=== PATIENT | male | born 1995 | race Caucasian/White ===

== ENCOUNTER 2020-02-21 11:57 | Inpatient (IN) | payer MEDICAID ==
[~2020-02-21] VITALS: Ht 172.7 cm; Wt 66.2 kg
[2020-02-21] VITALS (8 sets, daily range): BP systolic 108–136; BP diastolic 54–75
--- NOTE | 2020-02-21 12:00 | NUR ---
PT BIB SELF C/O NAUSEA AND VOMITING, BODYACHES SINCE 8AM. PT IS AAOX4, NOT IN RESPIRATORY DISTRESS, HOOKED TO PROVIDER RELATIONS CONSULTANT, KEPT RESTED AND COMFORTABLE, WILL CONTINUE TO MONITOR.
--- NOTE | 2020-02-21 12:25 | NUR ---
URINE SPECIMEN COLLECTED AND SENT TO LAB.
[2020-02-21] MEDS ORDERED: IV NS 0.9% 1,000 ML BAG IV ONE (12:30)
--- NOTE | 2020-02-21 12:30 | NUR ---
IV LINE ESTABLISHED BLOOD DRAWN AND SENT TO LAB.
[2020-02-21 12:34] LABS: APPEARANCE,URINE Clear (CLEAR); BILIRUBIN,URINE Negative (NEGATIVE); BLOOD, URINE Trace-intact Ery/uL (NEGATIVE); COLOR,URINE Yellow (YELLOW); KETONES,URINE >=160 (NEGATIVE); LEUKOCYTE ESTERASE ,URINE Negative (NEGATIVE); NITRITE, URINE Negative (NEGATIVE); PROTEIN,URINE Negative (NEGATIVE); UGLUCOSE 500 MG/DL mg/dL (NEGATIVE); UROBILINOGEN,URINE 0.2 EU/dL (0.2)
[2020-02-21 12:39] LABS: BASOPHILS % (AUTO) 0.2 % (0.0-2.0); HEMATOCRIT 49 % (39-51); LYMPHOCYTES # (AUTO) 0.9 /CMM (0.8-4.8); LYMPHOCYTES % (AUTO) 5.2 % (20.0-44.0); MEAN CORPUSCULAR HGB CONC 33 g/dl (31.0-36.0); MEAN CORPUSCULAR VOLUME 93 fL (80-96); MONOCYTES # (AUTO) 0.4 /CMM (0.1-1.30); MONOCYTES % (AUTO) 2.2 % (2.0-12.0); NEUTROPHILS # (AUTO) 15.7 /CMM (1.8-8.9); NEUTROPHILS % (AUTO) 92.4 % (43.0-81.0); PLATELET COUNT (AUTO) 241 /CMM (150-450); RED BLOOD CELL COUNT(AUTO) 5.25 MIL/uL (4.5-6.0); WHITE BLOOD COUNT (AUTO) 16.9 K/uL (4.3-11.0)
[2020-02-21 12:49] LABS: BACTERIA,URINE Few /HPF (None Seen); WBC,URINE 0-2 /HPF (0-3)
[2020-02-21 12:50] LABS: SQUAMOUS EPITHELIAL CELL,UR Few /HPF (None Seen)
[2020-02-21 12:55] LABS: ALBUMIN 5.4 g/dL (3.4-5.0); BILIRUBIN,DIRECT 0.2 mg/dL (0.0-0.2); BILIRUBIN,TOTAL 1.1 mg/dL (0.2-1.0); CREATININE 1.4 mg/dL (0.6-1.3); POTASSIUM 4.4 mmol/L (3.5-5.1); TOTAL PROTEIN, SERUM 8.1 g/dL (6.4-8.2)
[2020-02-21] MEDS ORDERED: ONDANSETRON HCL/PF - ER 4 MG/2 ML VIAL IV ONE (13:00)
[2020-02-21] MEDS ORDERED: ONDANSETRON HCL/PF 4 MG/2 ML VIAL ONE (13:08)
--- NOTE | 2020-02-21 13:20 | NUR ---
CALLED PHARMACY FOR INSULIN DRIP.
[2020-02-21] MEDS ORDERED: INSULIN REGULAR, HUMAN 100 UNIT in IV NS 0.9% 100 ML IV PRN ×2 (13:30)
[2020-02-21] MEDS ORDERED: INSU100V SQ (13:45)
[2020-02-21] MEDS ORDERED: SERT50TA12 MT (13:45)
--- NOTE | 2020-02-21 13:54 | NUR ---
CALLED ICU NURSE NOT AVAILABLE. WILL CALL BACK AFTER 10MINS.
[2020-02-21] MEDS ORDERED: Z GUARD REMEDY 2 OZ OINT TP PRN (14:00)
[2020-02-21] MEDS ORDERED: ONDANSETRON HCL/PF 4 MG/2 ML VIAL IVP PRN (14:00)
[2020-02-21] MEDS ORDERED: ACETAMINOPHEN 325 MG TABLET PO PRN (14:00)
[2020-02-21] MEDS ORDERED: HYDROCODONE/APAP 5/325MG TABLET PO PRN (14:00)
[2020-02-21] MEDS ORDERED: MAGNESIUM HYDROXIDE 30 ML UDC PO PRN (14:00)
[2020-02-21] MEDS ORDERED: INSULIN REGULAR, HUMAN 100 UNIT in IV NS 0.9% 99 ML IV PRN ×2 (14:00)
[2020-02-21] MEDS ORDERED: MAG HYDROX/AL HYDROX/SIMETH 30 ML UDC PO PRN (14:00)
--- NOTE | 2020-02-21 14:10 | NUR ---
REPORT GIVEN TO DIVYA DOW FOR CHANDLER, [facility] ONGOING INSULIN DRIP TITRATE TO EFFECT.
--- NOTE | 2020-02-21 14:22 | NUR ---
ROOM CHANGED TO 262
--- NOTE | 2020-02-21 14:51 | NUR ---
DR POLLOCK AT BEDSIDE
--- NOTE | 2020-02-21 15:30 | NUR ---
RN INITIAL NOTES RECEIVED PT FROM ER. PT A/OX4. ON ROOM AIR. NO RESPIRATORY DISTRESS NOTED. DENIES ANY PAIN. CONNECTED TO MONITOR. IV LINE IN PLACE. IVF INFUSING. ON INSULIN DRIP. WILL MONITOR BLOOD SUGAR Q1. ORIENTED TO ROOM AND USE OF CALL LIGHT. WILL CLOSELY MONITOR
[2020-02-21] MEDS: IV 1/2NS 1000 ML 1,000 ML IV PRN ×2 (15:37→15:50)
[2020-02-21] MEDS ORDERED: DEXTROSE 50%-WATER 50 ML DISP.SYRIN IV PRN (17:00)
[2020-02-21] MEDS: BLOOD SUGAR DIAGNOSTIC 1 EACH STRIP IN SCH ×7 (17:12→23:01)
[2020-02-21 18:23] LABS: CALCIUM, SERUM 9.1 mg/dL (8.5-10.1); CREATININE 0.9 mg/dL (0.6-1.3); POTASSIUM 4.5 mmol/L (3.5-5.1)
--- NOTE | 2020-02-21 18:25 | NUR ---
RN CLOSING NOTES PT REMAINS ON INSULIN DRIP, PROTOCOL FOLLOWED. NO SIGNIFICANT CHANGE NOTED. REMAINS A/OX4. DENIES ANY PAIN. KEPT COMFORTABLE. ALL NEEDS ATTENDED AND MET. CALL LIGHT WITHIN REACH. WILL ENDORSE FOR CONTINUITY OF CARE
--- NOTE | 2020-02-21 19:30 | NUR ---
RN NOTES RECEIVED PATIENT IN BED ALERT AWAKE ORIENTED X4. BREATHING NORMAL NO SOB NOTED. ON RA SATURATING 98%. NO S/S OF DISTRESS NOTED. DENIES ANY PAIN OR DISTRESS. TELE MONITOR READING SR IN 90'S. IV SITE ANDREA FLUID AND INSULIN DRIP RUNNING WELL. CONTINUES ON BS Q1 HOURS. SAFETY MEASURES IN PLACE, BED IN LOW AND LOCKED POSITION. SIDE RAILS UPX2 CALL LIGHT WITHIN REACH. WILL CONT TO MONITOR FOR CHANDLER.
[2020-02-21] MEDS: IV D5/ 0.9% NACL 1,000 ML IV SCH (21:37)
[2020-02-22] VITALS (21 sets, daily range): BP systolic 106–141; BP diastolic 55–93
[2020-02-22] MEDS: BLOOD SUGAR DIAGNOSTIC 1 EACH STRIP IN SCH ×10 (00:34→09:20)
[2020-02-22 00:56] LABS: CALCIUM, SERUM 8.8 mg/dL (8.5-10.1)
[2020-02-22 04:31] LABS: BASOPHILS % (AUTO) 0.2 % (0.0-2.0); EOSINOPHILS % (AUTO) 0.2 % (0.0-6.0); HEMATOCRIT 42 % (39-51); HEMOGLOBIN 14.2 g/dL (13.5-17.5); LYMPHOCYTES # (AUTO) 2.7 /CMM (0.8-4.8); LYMPHOCYTES % (AUTO) 23.7 % (20.0-44.0); MEAN CORPUSCULAR HGB CONC 34 g/dl (31.0-36.0); MEAN CORPUSCULAR VOLUME 90 fL (80-96); MONOCYTES % (AUTO) 8.8 % (2.0-12.0); NEUTROPHILS # (AUTO) 7.6 /CMM (1.8-8.9); NEUTROPHILS % (AUTO) 67.1 % (43.0-81.0); PLATELET COUNT (AUTO) 193 /CMM (150-450); RED BLOOD CELL COUNT(AUTO) 4.64 MIL/uL (4.5-6.0); WHITE BLOOD COUNT (AUTO) 11.3 K/uL (4.3-11.0)
[2020-02-22 04:59] LABS: CALCIUM, SERUM 8.6 mg/dL (8.5-10.1); MAGNESIUM 1.9 mg/dL (1.8-2.4); PHOSPHORUS 2.5 mg/dL (2.5-4.9); POTASSIUM 4.1 mmol/L (3.5-5.1); TOTAL PROTEIN, SERUM 6.6 g/dL (6.4-8.2)
[2020-02-22] MEDS: IV D5/ 0.9% NACL 1,000 ML IV SCH (05:30)
--- NOTE | 2020-02-22 07:08 | NUR ---
RN NOTES PATIENT REMAINED STABLE THROUGH OUT THE SHIFT. NO /S OF ACUTE DISTRESS NOTED. CONTINUES ON INSULIN DRIP AND FLUID RUNNING WELL. PATIENT DENIES ANY PAIN OR DISCOMFORT. VITAL SIGNS REMAINED WNL. CONTINUES ON BS Q1 HOURS. SAFETY MEASURES IN PLACE, BED IN LOW AND LOCKED POSITION. SIDE RAILS UPX2 CALL LIGHT WITHIN REACH. WILL ENDORSE TO AM NURSE FOR CHANDLER.
--- NOTE | 2020-02-22 07:40 | NUR ---
RN OPENING NOTE: RECEIVED PATIENT IN BED THIS MORNING. PATIENT IS ALERT AND ORIENTED X4, RESPONDS APPROPRIATELY. PATIENT SATING WELL ON ROOM AIR. NO SIGNS OF ACUTE RESPIRATORY DISTRESS NOTED. NO SIGNS OF ACUTE DISTRESS NOTED. SR IN THE 70S ON THE BEDSIDE MONITOR. #18 RAC, FLUSHING WELL, CDI, NO SIGNS OF COMPLICATIONS NOTED. SKIN INTACT. PATIENT ON INSULIN DRIP AT 1UNIT/HR, D5NS HANGING AT 125 CC/HR. SAFETY MEASURES IMPLEMENTED, BED IN LOWEST POSITION, LOCKED, SIDE RAILS UP X2, CALL LIGHT WITHIN REACH. WILL CONTINUE TO MONITOR PATIENT FOR CHANGES.
[2020-02-22] MEDS ORDERED: IV D5/ 0.9% NACL 1,000 ML IV PRN (08:25)
--- NOTE | 2020-02-22 11:36 | NUR ---
DR POLLOCK ROUNDED ON PATIENT EARLIER THIS MORNING WITH ORDERS TO STOP THE INSULIN DRIP, IVF, START HIM ON A CCHO DIET AND TO MONITOR BLOOD GLUCOSE AND ADMINISTER INSULIN WITH THE PUMP THAT PATIENT HAS FROM HOME THAT SELF ADMINISTERS AND TO DOCUMENT THE BLOOD GLUCOSE LEVELS ALONG WITH THE AMOUNT OF INSULIN SELF ADMINISTERED.
[2020-02-22 12:19] LABS: ABG OXYGEN SATURATION 97.4 % (92.0-98.5); ABG PCO2 35.9 mmHg (35.0-45.0); ABG PO2 93.2 mmHg (75.0-100.0); AaDO2 13.5 mmHg; COHb 0.6 % (0.5-1.5); MetHb 0.2 % (0.0-1.5); O2Hb 96.6 % (94.0-97.0); SITE, ABG Left Radial; VENT MODE, BG RA
--- NOTE | 2020-02-22 12:20 | NUR ---
PATIENT'S LATEST BLOOD SUGAR AT 10:11 WAS 232, PUMP ADMINISTERED 5 UNITS OF LISPRO. BLOOD SUGAR IS CURRENTLY AT 167. Addendum: 02/22/20 at 1819 by ANH MIRZA RN 1800 BLOOD SUGAR WAS 93, NO INSULIN WAS ADMINISTERED.
[2020-02-22 18:36] LABS: CREATININE 0.9 mg/dL (0.6-1.3); POTASSIUM 3.5 mmol/L (3.5-5.1)
--- NOTE | 2020-02-22 19:31 | NUR ---
PATIENT WAS TRANSFERRED TO [facility], REPORT GIVEN TO DIVYA SALAMANCA FOR CONTINUITY OF CARE. NO SIGNS OF ACUTE DISTRESS NOTED AT TIME OF DC AND PATIENT'S VS WERE WNL.
--- NOTE | 2020-02-22 19:45 | NUR ---
MS RN OPENING NOTES RECEIVED PATIENT FROM ICU, ALERT AND ORIENTED X 4. VERBALLY RESPONSIVE AND ABLE TO FOLLOW DIRECTIONS. BREATHING REGULAR AND UNLABORED ON ROOM AIR. RIGHT AC G18 IV LINE INTACT AND PATENT, FLUSHING WELL WITH NO BLEEDING OR S/S OF INFILTRATION NOTED. DENIES SUICIDAL IDEATION OR PAIN/DISCOMFORT AT THIS TIME. BED LOW AND LOCKED ON SEMI FOWLERS POSITION. CALL LIGHT IN REACH. WILL CONTINUE TO MONITOR.
--- NOTE | 2020-02-22 22:45 | NUR ---
MS RN NOTES PATIENT DECIDED TO SIGN AND GO AGAINST MEDICAL ADVICE, RISK AND BENEFITS EXPLAINED. ON-CALL MD NOTIFIED. PER PATIENT HIS MOM WILL PICK HIM UP IN THE LOBBY. IV LINE AND ID BAND REMOVED. REMAINED ALERT AND ORIENTED X 4, ON STABLE CONDITION.
== END 2020-02-22 22:45 | disposition left against medical advice (07) | DRG 420 ==
LOC: ER 12:00 → EDBD 12:00 → ICU 13:58 → MEDSG2 02-22 19:15
PROVIDERS: ADMIT Internal Medicine; ATTEND Internal Medicine
DX: E10.10 Type 1 diabetes mellitus with ketoacidosis without coma (principal); D72.829 Elevated white blood cell count, unspecified; Z79.899 Other long term (current) drug therapy; Z79.4 Long term (current) use of insulin; Z96.41 Presence of insulin pump (external) (internal)
CPT/HCPCS: 36415; 36600; 71045-TC; 80048-TC; 80053-TC; 80061-TC; 80076-TC; 81000-TC; 82962-TC; 83690-TC; 83735-TC; 84100-TC; 85025-TC; 87081-TC; G0378; J1815; J2405; J7030; J7042

== ENCOUNTER 2021-01-17 22:39 | Emergency (ER) | payer MEDICAID, OTHER ==
[~2021-01-17] VITALS: Ht 170.2 cm; Wt 68.0 kg
[~2021-01-17 22:39] MED LIST: INSU100V SQ; SERT-438 MT
--- NOTE | 2021-01-17 23:00 | NUR ---
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 Pt aaox4 breathing evenly and unlabored. Pt skin warm, dry, and intact. Pt states that he "smoked marijuana and ate ramen noodles before he felt sick". Pt attached to monitor and pox. Rt ac20g initated and blood obtained and sent to lab. [place] and call light given and within reach
[2021-01-17] MEDS ORDERED: ONDANSETRON HCL/PF 4 MG/2 ML VIAL ONE (23:08)
[2021-01-17 23:29] LABS: BASOPHILS % (AUTO) 0.2 % (0.0-2.0); EOSINOPHILS % (AUTO) 2.8 % (0.0-6.0); HEMATOCRIT 47 % (39-51); HEMOGLOBIN 15.8 g/dL (13.5-17.5); LYMPHOCYTES # (AUTO) 1.9 /CMM (0.8-4.8); LYMPHOCYTES % (AUTO) 15.9 % (20.0-44.0); MEAN CORPUSCULAR HGB CONC 33 g/dl (31.0-36.0); MEAN CORPUSCULAR VOLUME 89 fL (80-96); MONOCYTES # (AUTO) 0.8 /CMM (0.1-1.30); MONOCYTES % (AUTO) 7.2 % (2.0-12.0); NEUTROPHILS # (AUTO) 8.7 /CMM (1.8-8.9); NEUTROPHILS % (AUTO) 73.9 % (43.0-81.0); PLATELET COUNT (AUTO) 225 /CMM (150-450); RED BLOOD CELL COUNT(AUTO) 5.34 MIL/uL (4.5-6.0); WHITE BLOOD COUNT (AUTO) 11.7 K/uL (4.3-11.0)
[2021-01-17] MEDS ORDERED: ONDANSETRON HCL/PF 4 MG/2 ML VIAL IVP ONE (23:30)
[2021-01-17] MEDS ORDERED: IV NS 0.9% 1,000 ML BAG IV ONE (23:30)
[2021-01-17 23:41] LABS: CALCIUM, SERUM 9.9 mg/dL (8.5-10.1); CREATININE 0.8 mg/dL (0.6-1.3); POTASSIUM 3.4 mmol/L (3.5-5.1)
[2021-01-17 23:47] LABS: ALBUMIN 5.1 g/dL (3.4-5.0); BILIRUBIN,DIRECT 0.1 mg/dL (0.0-0.2); BILIRUBIN,TOTAL 0.6 mg/dL (0.2-1.0); TOTAL PROTEIN, SERUM 8.4 g/dL (6.4-8.2)
[2021-01-17] MEDS ORDERED: ONDA4TAB11 PO (23:59)
--- NOTE | 2021-01-18 00:11 | NUR ---
Patient discharged to home in stable condition. Written and verbal after care instructions given. Patient verbalizes understanding of instruction. IV removed. Catheter intact and site benign. Pressure and 4x4 applied to site. No bleeding noted. Pt ambulatory with a steady gait
[2021-01-18 00:18] VITALS: BP 122/88
== END 2021-01-18 00:11 | disposition home or self-care (01) ==
LOC: ER 22:41
DX: R11.2 Nausea with vomiting, unspecified (principal); E10.9 Type 1 diabetes mellitus without complications; F32.9 Major depressive disorder, single episode, unspecified; F41.9 Anxiety disorder, unspecified; Z79.4 Long term (current) use of insulin; Z79.899 Other long term (current) drug therapy
CPT/HCPCS: 36415; 80048; 80076; 83690; 85025; 96361; 96374; 99283; J2405; J7030